=== PATIENT | male | born 1945 | race Hispanic/Latino ===

== ENCOUNTER 2019-07-23 17:10 | Observation (INO) | payer MEDICARE, BC ==
--- NOTE | 2019-07-23 17:41 | RAD ---
XR Chest Pa Lat STANDARD History: Intermittent chest pain Comparison: None. Findings: Lungs are mildly hypoinflated with bibasilar atelectatic changes. Mild tortuosity of the ao rta. No confluent airspace consolidation, pneumothorax, or effusion. No acute osseous abnormality. Mild mi dthoracic spine spondylosis. Left distal clavicular osteolysis. Impression: Chronic findings. No acute intrathoracic abnormality.
[2019-07-23 17:58] LABS: #Eosinphils 0.2 thou/uL (0.0-0.7); #Lymphocytes 2.3 thou/uL (1.20-3.40); #Monocytes 0.6 thou/uL (0.11-0.59); #Neutrophils 2.8 thou/uL (1.40-6.50); %Basophils 0.8 % (0.0-1.0); %Eosinophils 3.4 % (0.0-10.0); %Lymphocytes 38.8 % (21.0-51.0); %Monocytes 10.6 % (0.0-10.0); %Neutrophils 46.5 % (42.0-75.0); Hemoglobin 16.3 g/dL (14.0-18.0); Mean Corpuscular HGB CONC 33.6 g/dL (32.0-36.0); Mean Corpuscular Hemoglobin 30.8 pg (27.0-31.0); Mean Corpuscular Volume 91.7 fL (78.0-98.0); Mean Platelet Volume 7.5 fL (7.4-10.4); Platelet Count 128 thou/uL (130-400); RBC Distribution Width 12.4 % (11.5-14.5); Red Blood Cell (RBC) Count 5.28 mill/uL (4.70-6.10)
[2019-07-23 18:20] LABS: ALT (SGPT) 16 U/L (8-55); AST (SGOT) 23 U/L (5-34); Albumin 4.5 g/dL (3.4-4.8); Alkaline Phosphatase 88 U/L (40-110); Anion Gap 11 mmol/L (10-20); BUN (Urea Nitrogen) 31 mg/dL (8.4-25.7); Bilirubin, Total 0.5 mg/dL (0.2-1.2); CK (CPK) 85 U/L (30-200); Calc. Creatinine Clearance 0 mL/min (70-130); Calcium 9.4 mg/dL (7.8-10.44); Carbon Dioxide 28 mmol/L (23-31); Chloride 104 mmol/L (98-107); Estimated GFR-MDRD 55; Globulin 3.3 g/dL (2.4-3.5); Glucose 125 mg/dL (83-110); Protein, Total 7.8 g/dL (5.8-8.1); Sodium 139 mmol/L (136-145)
[2019-07-23] MEDS ORDERED: Aspirin Chewable 81 MG TAB ONE (21:06)
[2019-07-23] MEDS ORDERED: Ondansetron ODT 4 MG TAB SL PRN (23:06)
[2019-07-23] MEDS ORDERED: Ondansetron PF 4 MG/2 ML Vial IVP PRN (23:06)
[2019-07-23] MEDS ORDERED: Acetaminophen 325 MG TAB PO PRN (23:06)
[2019-07-23] MEDS ORDERED: Nitroglycerin 0.4 MG TAB (25 Tab Bottle) SL PRN (23:07)
[2019-07-23 23:52] VITALS: BMI 25.9
[2019-07-24] MEDS ORDERED: Nitroglycerin 0.4 MG TAB (25 Tab Bottle) PO PRN (00:29)
[2019-07-24] MEDS ORDERED: Sodium Chloride 0.45% 1,000 ML IV SCH (00:45)
[2019-07-24 01:17] LABS: Troponin I 0.012 ng/mL (< 0.028)
--- NOTE | 2019-07-24 01:25 | HP ---
TIME OF ASSESSMENT: 003. CHIEF COMPLAINT: Abnormal EKG. HISTORY OF PRESENT ILLNESS: Mr. 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 The patient apparently had scheduled that appointment after experiencing an episode of epigastric burning/pain 3 weeks ago. The patient states that at that time, it felt like indigestion, but due to intermittent tingling and "electric-type pain" experienced in the left upper extremity, he made an appointment with his local primary care physician. The patient states he moved here from [place] 2 months ago. In [place], he was following with a medication administration professional on a yearly basis, undergoing yearly stress tests and echocardiograms; both of which were normal in September of 2018. The patient states the epigastric discomfort never recurred. However, he has continued to have intermittent numbness and tingling in his fingertips which he states is worse if he falls asleep with his hand on top of his abdomen. He states he has chronic pain in the left shoulder joint and has had multiple surgeries to the left shoulder. Today, he denies having any discomfort or pain whatsoever. He states he is otherwise in good health and has had no unusual symptoms. Denies any shortness of breath. No lightheadedness or dizziness. No palpitations. Reports having a good appetite. All other review of systems are negative. EMERGENCY DEPARTMENT COURSE: In the emergency department, he had an EKG done showing sinus bradycardia with a rate of 57, complete right bundle-branch block, and left anterior fascicular block, first-degree AV block. Laboratory studies were done showing a white count of 6.0, hemoglobin 16.3, hematocrit 48.4, platelets 128. Sodium 139, potassium 4, BUN 31, creatinine 1.28, GFR 55. No previous laboratory studies to compare to. LFTs unremarkable. Troponin negative x2. CK 85. Albumin 4.5. He had a chest x-ray done which showed no acute intrathoracic abnormality. He is noted to have mildly hypoinflated with bibasilar atelectatic changes in the lungs. Mild tortuosity of the aorta. Left distal clavicular osteolysis present. He was given 324 mg of aspirin and referred for further monitoring and workup. PAST MEDICAL HISTORY: 1. Hypertension. 2. Hyperlipidemia. 3. Coronary artery disease. PAST SURGICAL HISTORY: Cardiac stent in 1996. SOCIAL HISTORY: The patient denies any tobacco use or alcohol consumption. No illicit drug use. FAMILY HISTORY: Noncontributory. ALLERGIES: NO KNOWN DRUG ALLERGIES. CURRENT MEDICATIONS: 1. Atenolol. 2. Amlodipine. 3. Hydrochlorothiazide. 4. Ramipril. 5. Tadalafil. 6. Aspirin. PHYSICAL EXAMINATION: GENERAL: The patient appears well developed, well nourished, is in no acute distress. VITAL SIGNS: Temperature 98.5, pulse 56, blood pressure 114/75, respirations 18, O2 saturation 98% on room air. HEENT: Normocephalic and atraumatic. Pupils equal, round, reactive to light. Sclerae icterus. Oropharynx is clear. NECK: Supple. LUNGS: Clear to auscultation bilaterally without wheezes, rales, or rhonchi. CARDIAC: Regular rate and rhythm. No reproducible chest wall discomfort. ABDOMEN: Soft, nontender, nondistended. Normoactive bowel sounds present. No guarding or rigidity. No angle tenderness. EXTREMITIES: No lower leg swelling or edema. No tenderness or pain to the left shoulder joint. Full range of motion. Power 5/5 in all extremities. Normal hand director mba strength. NEUROLOGIC: Alert and oriented x3. No neuro deficits on exam. SKIN: Warm and dry. INVESTIGATIONS: As mentioned above in HPI. IMPRESSION AND PLAN: Mr. Toussaint is a pleasant 74-year-old gentleman with a known history of hypertension, hyperlipidemia, and coronary artery disease, referred to emergency department by his primary care physician due to an abnormal EKG. Followup today was due to epigastric discomfort 3 weeks ago with no recurring symptoms since then. The patient recently moved from [place] where he was having yearly echocardiograms and stress test, which he states were normal in September 2018. The patient has not had any complaints of chest pains since 3 weeks ago and at that time states his pain was more epigastric in nature and describes it as a burning/indigestion type of sensation. We will continue cardiac monitoring. We will continue to trend troponins. EKG changes will need to be compared to previous EKGs. We will also need to obtain most recent echo and stress test done less than a year ago. Per discussion with Dr. Torres, we will hold off on scheduling any stress test done for further workup here until we obtain previous records. The patient remains asymptomatic and has no complaints. We will monitor blood pressure and resume home medications once verified. For GI prophylaxis, we will start famotidine; DVT prophylaxis, the patient is ambulatory. Case discussed with Dr. Torres, who agrees with plan of care as described above. Job ID: [id number]
[2019-07-24 05:00] LABS: #Eosinphils 0.3 thou/uL (0.0-0.7); #Lymphocytes 2.2 thou/uL (1.20-3.40); #Monocytes 0.7 thou/uL (0.11-0.59); #Neutrophils 2.9 thou/uL (1.40-6.50); %Basophils 0.6 % (0.0-1.0); %Eosinophils 4.4 % (0.0-10.0); %Lymphocytes 35.8 % (21.0-51.0); %Monocytes 11.8 % (0.0-10.0); %Neutrophils 47.5 % (42.0-75.0); Hemoglobin 15.7 g/dL (14.0-18.0); Mean Corpuscular Hemoglobin 30.2 pg (27.0-31.0); Mean Corpuscular Volume 91.6 fL (78.0-98.0); Mean Platelet Volume 7.9 fL (7.4-10.4); Platelet Count 120 thou/uL (130-400); RBC Distribution Width 12.4 % (11.5-14.5); White Blood Cell (WBC) Count 6.1 thou/uL (4.8-10.8)
[2019-07-24 05:08] LABS: Anion Gap 8 mmol/L (10-20); BUN (Urea Nitrogen) 24 mg/dL (8.4-25.7); Calc. Creatinine Clearance 67 mL/min (70-130); Calcium 8.8 mg/dL (7.8-10.44); Carbon Dioxide 27 mmol/L (23-31); Cardiac Risk 3.4 (Less than 4.5); Chloride 106 mmol/L (98-107); Cholesterol 101 mg/dl (< 200 Desired); Estimated GFR-MDRD 68; Glucose 105 mg/dL (83-110); HDL Cholesterol 30 mg/dL (>60 Neg Risk); LDL Cholesterol, Calculated 59 mg/dL; Sodium 138 mmol/L (136-145); Triglycerides 61 mg/dL (Less than 150)
[2019-07-24] MEDS ORDERED: Amlodipine 5 MG TAB PO SCH (09:00)
[2019-07-24] MEDS ORDERED: Famotidine/PF 20 mg/2ml Vial SLOW IVP SCH (09:00)
[2019-07-24] MEDS ORDERED: Ramipril 5 MG CAP PO SCH (09:00)
[2019-07-24] MEDS ORDERED: Atenolol 50 MG TAB PO SCH (09:00)
[2019-07-24] MEDS ORDERED: Aspirin 81 mg Enteric Coated Tablet PO SCH (09:00)
[2019-07-24 16:08] VITALS: BP 158/80; TEMP 97.6
--- NOTE | 2019-07-25 08:18 | DIS ---
DATE OF ADMISSION: 07/23/2019 DATE OF DISCHARGE: 07/24/2019 DISCHARGE DIAGNOSES: 1. Chest pain, atypical. 2. History of coronary artery disease, status post stent to the LAD in 1995. 3. Hypertension. 4. Hyperlipidemia. 5. History of dengue fever. HOSPITAL COURSE: The patient is a 74-year-old male, who normally resides in [place], has been in [place], [place] for about couple of months, has been having complaints of heartburn, burning like sensation going on and off for the past 3 weeks. The patient at this time also had some tingling to his left arm, at which point he made an appointment with his primary care doctor, who did an electrocardiogram and noted to have a right bundle branch block and asked the patient to come into the hospital for further evaluation. The patient currently denies any chest pain or shortness of breath. He stated that his previous MO, which required him to have a stent was while he was in an airplane and suffered a chest tightness with diaphoresis and pins and needles to his left arm. At this time, the patient underwent an emergent stent to his LAD. The patient states that since then he has been very compliant and has been following up with his advertising sales associate. His last stress test with echo indicated no evidence of inducible ischemia. This is per his records from his advertising sales associate. I did call the advertising sales associate office myself to get any previous EKG for comparison reasons. However, they told me that they were no EKGs. They recommended me to call the primary care doctor; however, the patient stated that he has been following up with his advertising sales associate for several years. I did stress the importance of getting an electrocardiogram; however, the facilities represented stated that there was no EKG, the only thing that they had was what they had faxed to us. The patient during the hospital stay did have some bradycardia. At this point, he is on atenolol 50 mg. I will decrease the dose to 12.5 mg and I have faxed all the records to the advertising sales associate office. The patient's troponins here have been negative. His EKG here that was done did show that he does have a right bundle branch block, sinus xiomara with first-degree AV block. Currently, the patient has no chest pain or shortness of breath. He is asymptomatic. It would be redundant to repeat the stress test since he had one in February 2019. I did go ahead and call the advertising sales associate and got the patient an appointment on tomorrow at 10:30 a.m. He will follow up with Cardiology for further recommendations. MEDICATIONS: His home medications will be as of the followin. Atenolol 12.5 daily. 2. Amlodipine 5 mg daily. 3. Aspirin 81 mg daily. 4. Hydrochlorothiazide 12.5 daily. 5. Ramipril 5 mg daily. 6. Cialis 10 mg p.o. daily. Again, the patient will be discharged home. He will follow up with Cardiology tomorrow at 10:30. I have discussed the plan with the patient and he understands and he will follow up tomorrow with Cardiology and I also advised him that if his symptoms worsened to the point, he started having chest pain. He needs to come into the ER immediately. PHYSICAL EXAMINATION: VITAL SIGNS: As of the following; temperature 97.6, heart rate of 56, respirations 16, 97% on room air, and blood pressure 126/61. GENERAL: He is awake, alert, and oriented x3. Does not appear in distress. CV: S1 and S2 present. No murmurs, rubs, or gallops. ABDOMEN: Soft and nontender. Bowel sounds are present x2. LUNGS: Clear to auscultation. He will be discharged home. He will follow up with his primary and also with Cardiology. Job ID: [id number]
== END 2019-07-24 16:55 | disposition home or self-care (01) ==
LOC: ERS 17:10 → INTOOBSV 22:05 → 2NO 22:05
PROVIDERS: ADMIT Internal Medicine; ATTEND Internal Medicine
DX: R07.89 Other chest pain (principal); I45.10 Unspecified right bundle-branch block; I44.0 Atrioventricular block, first degree; I25.10 Atherosclerotic heart disease of native coronary artery without angina pectoris; I10 Essential (primary) hypertension; E78.5 Hyperlipidemia, unspecified; G89.29 Other chronic pain; M25.512 Pain in left shoulder; Z79.82 Long term (current) use of aspirin; Z79.899 Other long term (current) drug therapy; Z91.018 Allergy to other foods; Z95.5 Presence of coronary angioplasty implant and graft; R10.13 Epigastric pain; I25.2 Old myocardial infarction
CPT/HCPCS: 71046; 80048; 80053; 80061; 82550; 83735; 84443; 84484 ×4; 85025 ×2; 93005; 96361; 96374; 97139; 99285; G0378; 36415; S0028

== ENCOUNTER 2020-12-28 12:38 | Outpatient (CLI) | payer MEDICARE ==
[2020-12-28 13:30] LABS: #Eosinphils 0.2 10x3/uL (0.0-0.5); #Monocytes 0.6 10x3/uL (0.0-1.1); #Neutrophils 3.3 10x3/uL (1.5-8.4); %Basophils 0.3 % (0.0-2.0); %Eosinophils 3.7 % (0.0-6.0); %Lymphocytes 34.9 % (18.0-47.0); %Monocytes 9.7 % (0.0-10.0); %Neutrophils 51.2 % (40.0-75.0); Hemoglobin 16.7 g/dL (13.5-17.5); Mean Corpuscular HGB CONC 34.9 g/dL (32.0-36.0); Mean Corpuscular Hemoglobin 31.4 pg (27.0-33.0); Mean Platelet Volume 10.2 fl (7.4-10.4); Platelet Count 144 10x3/uL (150-450); RBC Distribution Width 12.8 % (11.5-14.5); Red Blood Cell (RBC) Count 5.32 10x6/uL (4.32-5.72); White Blood Cell (WBC) Count 6.5 10x3/uL (3.5-10.5)
[2020-12-28 13:47] LABS: ALT (SGPT) 20 U/L (8-55); AST (SGOT) 24 U/L (5-34); Albumin 4.3 g/dL (3.4-4.8); Alkaline Phosphatase 84 U/L (40-110); Anion Gap 14 mmol/L (10-20); BUN (Urea Nitrogen) 22 mg/dL (8.4-25.7); Bilirubin, Total 0.6 mg/dL (0.2-1.2); Calc. Creatinine Clearance 0 mL/min (70-130); Calcium 9.6 mg/dL (7.8-10.44); Carbon Dioxide 20 mmol/L (23-31); Chloride 107 mmol/L (98-107); Globulin 3.7 g/dL (2.4-3.5); Glucose 104 mg/dL (83-110); Potassium 4.8 mmol/L (3.5-5.1); Sodium 136 mmol/L (136-145)
== END 2020-12-28 12:39 | disposition home or self-care (01) ==
LOC: LABBT 12:38
PROVIDERS: ATTEND Surgery
DX: Z01.818 Encounter for other preprocedural examination (principal); K40.90 Unilateral inguinal hernia, without obstruction or gangrene, not specified as recurrent
CPT/HCPCS: 80053; 85025; 93005; 93010

== ENCOUNTER 2021-10-26 12:48 | Observation (INO) | payer MEDICARE ==
[2021-10-26 13:31] LABS: #Eosinphils 0.2 thou/uL (0.0-0.7); #Lymphocytes 2.8 thou/uL (1.20-3.40); #Monocytes 0.5 thou/uL (0.11-0.59); #Neutrophils 3.1 thou/uL (1.40-6.50); %Eosinophils 2.5 % (0.0-10.0); %Lymphocytes 42.3 % (21.0-51.0); %Neutrophils 47.1 % (42.0-75.0); Hemoglobin 15.7 g/dL (14.0-18.0); Mean Corpuscular HGB CONC 33.3 g/dL (32.0-36.0); Mean Corpuscular Hemoglobin 31.6 pg (27.0-31.0); Mean Corpuscular Volume 94.8 fL (78.0-98.0); Mean Platelet Volume 7.5 fL (7.4-10.4); Platelet Count 142 thou/uL (130-400); RBC Distribution Width 12.8 % (11.5-14.5); Red Blood Cell (RBC) Count 4.98 mill/uL (4.70-6.10); White Blood Cell (WBC) Count 6.5 thou/uL (4.8-10.8)
[2021-10-26 13:50] LABS: ALT (SGPT) 17 U/L (8-55); AST (SGOT) 23 U/L (5-34); Albumin 4.3 g/dL (3.4-4.8); Alkaline Phosphatase 89 U/L (40-110); Anion Gap 14 mmol/L (10-20); BUN (Urea Nitrogen) 20 mg/dL (8.4-25.7); Bilirubin, Total 0.6 mg/dL (0.2-1.2); Calc. Creatinine Clearance 0 mL/min (70-130); Calcium 9.2 mg/dL (7.8-10.44); Carbon Dioxide 19 mmol/L (23-31); Chloride 106 mmol/L (98-107); Globulin 3.7 g/dL (2.4-3.5); Glucose 123 mg/dL (83-110); Potassium 4.3 mmol/L (3.5-5.1); Sodium 135 mmol/L (136-145)
[2021-10-26] MEDS ORDERED: Aspirin Chewable 81 MG TAB ONE ×2 (14:51→15:04)
[2021-10-26] MEDS ORDERED: Nitroglycerin 2% Ointment 1 INCH/1 GM Packet ONE (14:51)
[2021-10-26] MEDS ORDERED: Nitroglycerin 4.9 GM Bottle SL PRN (15:06)
[2021-10-26 16:25] VITALS: BMI 27.9
[2021-10-26 18:01] LABS: Troponin I Less than 0.010 ng/mL (< 0.028)
[2021-10-26] MEDS ORDERED: Acetaminophen 325 MG TAB PO PRN (18:01)
[2021-10-26] MEDS ORDERED: Atorvastatin Calcium 40 MG TAB PO SCH (21:00)
[2021-10-27 00:50] LABS: SARS-CoV-2 PCR by NAA Not Detected (NotDetected)
[2021-10-27 05:16] LABS: #Eosinphils 0.2 thou/uL (0.0-0.7); #Lymphocytes 2.6 thou/uL (1.20-3.40); #Monocytes 0.5 thou/uL (0.11-0.59); #Neutrophils 2.8 thou/uL (1.40-6.50); %Basophils 0.7 % (0.0-1.0); %Eosinophils 2.9 % (0.0-10.0); %Monocytes 8.7 % (0.0-10.0); %Neutrophils 45.7 % (42.0-75.0); Mean Corpuscular HGB CONC 33.3 g/dL (32.0-36.0); Mean Corpuscular Hemoglobin 31.8 pg (27.0-31.0); Mean Corpuscular Volume 95.4 fL (78.0-98.0); Mean Platelet Volume 7.8 fL (7.4-10.4); Platelet Count 124 thou/uL (130-400); RBC Distribution Width 12.7 % (11.5-14.5); Red Blood Cell (RBC) Count 5.03 mill/uL (4.70-6.10); White Blood Cell (WBC) Count 6.1 thou/uL (4.8-10.8)
[2021-10-27 05:37] LABS: Anion Gap 12 mmol/L (10-20); BUN (Urea Nitrogen) 15 mg/dL (8.4-25.7); Calc. Creatinine Clearance 63 mL/min (70-130); Carbon Dioxide 24 mmol/L (23-31); Cardiac Risk 3.7 (Less than 4.5); Chloride 106 mmol/L (98-107); Cholesterol 122 mg/dl (< 200 Desired); Glucose 98 mg/dL (83-110); HDL Cholesterol 33 mg/dL (>60 Neg Risk); LDL Cholesterol, Calculated 77 mg/dL; Potassium 3.9 mmol/L (3.5-5.1); Sodium 138 mmol/L (136-145); Triglycerides 61 mg/dL (Less than 150)
[2021-10-27 07:37] VITALS: BP 153/78; TEMP 97.7
[2021-10-27] MEDS ORDERED: Enoxaparin Sodium 40 MG/0.4 ML SYRINGE SC SCH (09:00)
[2021-10-27] MEDS ORDERED: Aspirin 81 mg Enteric Coated Tablet PO SCH (09:00)
[2021-10-27] MEDS ORDERED: Iopamidol 370 76% 100 ML VIAL ONE (09:10)
[2021-10-27] MEDS ORDERED: Communication Order-Pharmacy FS SCH (09:15)
[2021-10-27] MEDS ORDERED: Sodium Chloride 0.9% 500 ML IV SCH (09:15)
[2021-10-27] MEDS ORDERED: Lidocaine 1% (PF) 30 ML VIAL ONE (09:23)
[2021-10-27] MEDS ORDERED: Midazolam HCl 2 mg/2 ml Vial ONE (09:23)
[2021-10-27] MEDS ORDERED: Heparin 10,000 UNITS/ 10 ML VIAL ONE (09:23)
[2021-10-27] MEDS ORDERED: Verapamil 5 MG/2 ML VIAL ONE (09:23)
[2021-10-27] MEDS ORDERED: Fentanyl 100 MCG/2 ML VIAL ONE (09:23)
[2021-10-27] MEDS ORDERED: Nitroglycerin 100MG/250ML BOT 250 ML ONE (09:33)
[2021-10-27] MEDS ORDERED: Acetaminophen/Codeine 30-300mg Tablet PO PRN (10:50)
[2021-10-27] MEDS ORDERED: Nitroglycerin 0.4 MG TAB (25 Tab Bottle) SL PRN (10:50)
[2021-10-27] MEDS ORDERED: Sodium Chloride 0.9% 200 ML IV PRN (10:50)
== END 2021-10-27 17:27 | disposition home or self-care (01) ==
LOC: ERS 12:48 → SUATTDRO 12:48 → 2SW 14:23
PROVIDERS: ADMIT Internal Medicine; ATTEND Internal Medicine
PROC: 4A023N7 Measurement of Cardiac Sampling and Pressure, Left Heart, Percutaneous Approach (ICD-10-PCS; principal; 2021-10-27)
PROC: B2111ZZ Fluoroscopy of Multiple Coronary Arteries using Low Osmolar Contrast (ICD-10-PCS; 2021-10-27)
DX: R07.89 Other chest pain (principal); I25.10 Atherosclerotic heart disease of native coronary artery without angina pectoris; I12.9 Hypertensive chronic kidney disease with stage 1 through stage 4 chronic kidney disease, or unspecified chronic kidney disease; N18.2 Chronic kidney disease, stage 2 (mild); E78.5 Hyperlipidemia, unspecified; R00.1 Bradycardia, unspecified; E87.1 Hypo-osmolality and hyponatremia; Z79.899 Other long term (current) drug therapy; Z91.018 Allergy to other foods; Z95.5 Presence of coronary angioplasty implant and graft; Z20.822 Contact with and (suspected) exposure to COVID-19
CPT/HCPCS: 71045; 80048; 80053; 80061; 83690; 84484 ×2; 85025 ×2; 93005; 93458; 94760 ×2; 99285; U0003; U0005; 36415; 99152; G0378; J1644; J2001; J2250; J3010; Q9967

== ENCOUNTER 2023-12-27 11:55 | Outpatient (CLI) | payer MEDICARE, BC | END 2023-12-27 11:56 | disposition home or self-care (01) | LOC: RAD 11:55 | PROVIDERS: ATTEND Family Medicine | DX: M47.26 Other spondylosis with radiculopathy, lumbar region (principal) | CPT/HCPCS: 72100 ==

== ENCOUNTER 2024-01-02 13:04 | Outpatient (CLI) | payer MEDICARE, BC | END 2024-01-02 13:05 | disposition home or self-care (01) | LOC: MRI 13:04 | PROVIDERS: ATTEND Family Medicine | DX: M47.26 Other spondylosis with radiculopathy, lumbar region (principal); M40.56 Lordosis, unspecified, lumbar region; M48.061 Spinal stenosis, lumbar region without neurogenic claudication; M47.817 Spondylosis without myelopathy or radiculopathy, lumbosacral region; M53.2X6 Spinal instabilities, lumbar region | CPT/HCPCS: 71046; 72158; 82565 ==

== ENCOUNTER 2024-01-03 12:45 | Inpatient (IN) | payer MEDICARE, BC ==
[2024-01-03 14:50] LABS: #Basophils Less than 0.03 10x3/uL (0.0-0.2); %Basophils 0.2 % (0.0-1.0); %Eosinophils 1.9 % (0.0-10.0); %Lymphocytes 18.7 % (21.0-51.0); %Monocytes 6.3 % (0.0-10.0); %Neutrophils 72.5 % (42.0-75.0); Hematocrit 46.1 % (42.0-52.0); Hemoglobin 16.1 g/dL (14.0-18.0); Mean Corpuscular HGB CONC 34.9 g/dL (32.0-36.0); Mean Corpuscular Hemoglobin 31.1 pg (27.0-31.0); Mean Corpuscular Volume 89.2 fL (78.0-98.0); Mean Platelet Volume 9.4 fL (7.4-10.4); Platelet Count 138 10x3/uL (130-400); RBC Distribution Width 12.8 % (11.5-14.5); Red Blood Cell (RBC) Count 5.17 mill/uL (4.70-6.10)
[2024-01-03 15:05] LABS: ALT (SGPT) 20 U/L (8-55); AST (SGOT) 24 U/L (5-34); Albumin 4.1 g/dL (3.4-4.8); Alkaline Phosphatase 89 U/L (40-110); Anion Gap 11 mmol/L (10-20); BUN (Urea Nitrogen) 23 mg/dL (8.4-25.7); Bilirubin, Total 0.6 mg/dL (0.2-1.2); Calc. Creatinine Clearance 0 mL/min (70-130); Calcium 9.6 mg/dL (7.8-10.44); Carbon Dioxide 25 mmol/L (23-31); Chloride 106 mmol/L (98-107); Estimated GFR 57; Globulin 3.7 g/dL (2.4-3.5); Glucose 104 mg/dL (83-110); Potassium 4.4 mmol/L (3.5-5.1); Protein, Total 7.8 g/dL (5.8-8.1); Sodium 138 mmol/L (136-145)
[2024-01-03 15:13] LABS: Bacteria/HPF None Seen HPF (None Seen); Bilirubin Negative (Negative); Blood, Urine Trace (Negative); CAUTI Indications for Culture Spinal Cord Injury; Clarity Clear (Clear); Glucose, Urine (Dipstick) Normal (Negative); Ketone, Urine Negative (Negative); Leukocyte Negative Leu/uL (Negative); Nitrite Negative (Negative); Protein, Urine (Dipstick) Negative (Neg-Trace); Specific Gravity, Urine 1.008 (1.002-1.036); Squamous Epithelial None Seen HPF (0-3); Urobilinogen Normal mg/dL (Less than 2); WBC/HPF 0-3 HPF (0-3)
[2024-01-03 15:20] LABS: Urine Culture Reflex No No
[2024-01-03] MEDS ORDERED: Dexamethasone 10 MG/ML VIAL ONE (16:43)
[2024-01-03] MEDS ORDERED: Ondansetron PF 4 MG/2 ML Vial IVP PRN (19:15)
[2024-01-03] MEDS ORDERED: Ondansetron ODT 4 MG TAB SL PRN (19:15)
[2024-01-03] MEDS ORDERED: Acetaminophen 325 MG TAB PO PRN (19:15)
[2024-01-03] MEDS ORDERED: Dexamethasone 10 MG/ML VIAL SLOW IVP SCH (23:00)
== END 2024-01-03 19:17 | disposition left against medical advice (07) | DRG 552 ==
LOC: ERS 12:45 → T4-A 17:48
PROVIDERS: ADMIT Surgery; ATTEND Surgery
DX: M48.061 Spinal stenosis, lumbar region without neurogenic claudication (principal); R33.9 Retention of urine, unspecified; I25.10 Atherosclerotic heart disease of native coronary artery without angina pectoris; I10 Essential (primary) hypertension; Z95.5 Presence of coronary angioplasty implant and graft; Z91.048 Other nonmedicinal substance allergy status; Z91.018 Allergy to other foods; Z79.899 Other long term (current) drug therapy
CPT/HCPCS: 51702; 71046; 72158; 80053; 81001; 82565; 85025; 96374; J1100